=== PATIENT | male | born 1935 | race Caucasian/White ===

== ENCOUNTER 2018-01-10 11:31 | Outpatient (CLI) | payer MEDICARE, OTHER ==
--- NOTE | 2018-01-10 13:16 | RAD ---
RIGHT KNEE 4 VIEWS: HISTORY: Knee pain. FINDINGS: Mild narrowing of the medial joint space. No significant degenerative spurring from the condyles or patella. No joint effusion. IMPRESSION: Mild narrowing of the medial joint space. No significant hypertrophic degenerative change is seen. POS: [facility]
== END 2018-01-10 11:32 | disposition home or self-care (01) ==
LOC: BURRAD 11:31
PROVIDERS: ATTEND Family Medicine
DX: M79.89 Other specified soft tissue disorders (principal); M25.561 Pain in right knee; M25.861 Other specified joint disorders, right knee
CPT/HCPCS: 36415; 85379

== ENCOUNTER 2021-08-14 16:23 | Outpatient (CLI) | payer MEDICARE, OTHER | END 2021-08-14 16:24 | disposition home or self-care (01) | LOC: BURRAD 16:23 | PROVIDERS: ATTEND Family Medicine | DX: M25.511 Pain in right shoulder (principal) ==